=== PATIENT | female | born 1985 | race Caucasian/White ===

== ENCOUNTER 2021-04-10 10:19 | Emergency (ER) | payer SELFPAY ==
[2021-04-10 10:32] VITALS: BP 116/71; PULSE 87; RESP 16; TEMP 36.2; O2SAT 99
--- NOTE | 2021-04-10 11:02 | ED.SKABFB ---
HPI - Skin/Abscess/Foreign Bdy General Chief complaint: Skin/Abscess/Foreign Body Stated complaint: Skin Irritation Source: patient and RN notes reviewed Mode of arrival: ambulatory History of Present Illness HPI narrative: This is a 36-year-old female who presented to urgent care with a history of eczema. She is here today because she has had eczema flareup on her right foot, right and bilateral elbows. Patient notes that she is usually prescribed tretinoin in her provider is not open today. The patient denies SOB, CP, palpitation, extremity numbness, lightheadedness, dizziness, constipation, diarrhea, chills, or fever. Related Data Home Medications Medication Instructions Recorded Confirmed No Home Medications 04/10/21 04/10/21 Allergies Allergy/AdvReac Type Severity Reaction Status Date / Time lactose AdvReac Mild Gastrointestinal Verified 04/10/21 10:47 Upset Review of Systems Review of Systems: A 14 organ system Review of Systems was performed and pertinent positives included in the HPI, otherwise remaining ROS is negative. [facility] Family History Family History (Updated 04/10/21 @ 11:07 by MANOLO LynneP-C) Other Family history non-contributory Exam Narrative: GENERAL: This is a well-nourished, well-developed patient, in no apparent distress. HEAD: normocephalic, atraumatic. EYES: PERRL. Sclera clear/white. Vision is grossly intact. EARS: External ears normal, auditory canals clear and without drainage, TMs normal without perforation. Hearing grossly intact. NOSE: External nose normal with no obvious nasal discharge, nares without redness, no rhinorrhea. THROAT: Mucous membranes moist, posterior pharynx clear. NECK: Neck supple, non-tender without lymphadenopathy, masses or thyromegaly. CARDIOVASCULAR: Regular rate and rhythm without murmurs, gallops, or rubs. RESPIRATORY: Clear to auscultation. Breath sounds equal bilaterally. No wheezes, rales, or rhonchi. GASTROINTESTINAL: Abdomen soft, non-tender, nondistended. Bowel sounds are active. No hepato-splenomegaly, or palpable masses. No guarding. SKIN: Erythema and edema rash to the right foot, right and bilateral elbows NEURO: awake, alert, and oriented to person, place and time. There were no obvious focal neurologic abnormalities. Steady gait EXTREMITIES: Normal range of motion. No edema. No calf tenderness. Negative Homans sign bilaterally. BACK: Nontender without deformity or crepitance. No flank tenderness. Course Course Emergency Course: Patient will be prescribed tretinoin Vital Signs Vital signs: Vital Signs Temperature 97.2 F L 04/10/21 10:32 Pulse Rate 87 04/10/21 10:32 Respiratory Rate 16 04/10/21 10:32 Blood Pressure 116/71 04/10/21 10:32 Pulse Oximetry 99 04/10/21 10:32 Temperature 97.2 F L 04/10/21 10:32 Pulse Rate 87 04/10/21 10:32 Respiratory Rate 16 04/10/21 10:32 Blood Pressure 116/71 04/10/21 10:32 Pulse Oximetry 99 04/10/21 10:32 MDM - Skin/Abscess/Foreign Bdy Differential Diagnosis Differential diagnosis: Likely abscess of skin or subcutaneous tissue, eczema and contact dermatitis Discharge Plan Discharge Clinical Impression: Eczema Qualifiers: Eczema type: unspecified Qualified Code(s): L30.9 - Dermatitis, unspecified Patient Disposition: Home, Self-Care Condition: Stable Instructions: Antibiotic Form, Eczema (ED) Additional Instructions: Wash the area with soap and cool water only. Avoid scratching when possible to prevent worsening of the condition and disruption of the skin that could lead to bacterial infection To relieve itching, place a cool washcloth or some ice over the area that itches, rather than scratching Follow up with primary care provider or seek ER if you have trouble breathing, become hoarse, or start wheezing, develops belly cramps, vomiting or feel dizzy. Prescriptions: New tretinoin 0.1 % cream 1 applic topical HS Qty: 45 RF: 2 N
== END 2021-04-10 11:04 | disposition home or self-care (01) ==
PROVIDERS: Emergency Provider Nurse Practitioner
DX: L30.9 Dermatitis, unspecified (principal)
CPT/HCPCS: 99213; G0463